=== PATIENT | male | born 1980 | race Caucasian/White ===

== ENCOUNTER 2017-03-20 17:46 | Emergency (ER) | payer BC ==
[~2017-03-20] VITALS: Ht 177.8 cm; Wt 73.9 kg
[~2017-03-20 17:46] MED LIST: RANI150T8 PO
[2017-03-20 17:47] VITALS: BP 128/83
== END 2017-03-20 20:10 | disposition home or self-care (01) ==
LOC: ED 20:04
DX: K40.90 Unilateral inguinal hernia, without obstruction or gangrene, not specified as recurrent (principal); K21.9 Gastro-esophageal reflux disease without esophagitis
CPT/HCPCS: 76870; 81003; 99285

== ENCOUNTER 2017-03-22 16:05 | Emergency (ER) | payer BC ==
[~2017-03-22] VITALS: Ht 177.8 cm; Wt 76.7 kg
[2017-03-22] MEDS ORDERED: ASPIRIN 81 MG TABLET CHEW PO ONE (16:30)
[2017-03-22] MEDS ORDERED: ASPIRIN 81 MG TABLET CHEW ONE (16:39)
[2017-03-22 16:49] VITALS: BP 130/78
[2017-03-22 16:50] LABS: BLOOD UREA NITROGEN 11 mg/dL (7-18)
[2017-03-22 16:55] LABS: IS PT STATUS REG ER OR PRE ER? YES
[2017-03-22] MEDS ORDERED: LIDOCAINE 1%-EPI 1:100K, 20ML SQ ONE (17:00)
== END 2017-03-22 18:20 | disposition home or self-care (01) ==
LOC: ED 17:02
DX: L02.415 Cutaneous abscess of right lower limb (principal); R07.89 Other chest pain; K21.9 Gastro-esophageal reflux disease without esophagitis; F15.10 Other stimulant abuse, uncomplicated
CPT/HCPCS: 10060; 36415; 71010; 80048; 82040; 84484; 85025; 93005; 99285

== ENCOUNTER 2017-04-06 12:04 | Emergency (ER) | payer BC ==
[~2017-04-06] VITALS: Ht 177.8 cm; Wt 73.6 kg
[2017-04-06 13:14] VITALS: BP 140/94
== END 2017-04-06 13:18 | disposition home or self-care (01) ==
LOC: ED 12:27
DX: S61.432A Puncture wound without foreign body of left hand, initial encounter (principal); F15.10 Other stimulant abuse, uncomplicated; W26.0XXA Contact with knife, initial encounter; Y93.89 Activity, other specified; Y92.009 Unspecified place in unspecified non-institutional (private) residence as the place of occurrence of the external cause; Y99.8 Other external cause status
CPT/HCPCS: 29125; 99283

== ENCOUNTER 2017-04-25 05:56 | Emergency (ER) | payer SELFPAY ==
[~2017-04-25] VITALS: Ht 177.8 cm; Wt 73.0 kg
[2017-04-25 06:01] VITALS: BP 120/80
[2017-04-25] MEDS ORDERED: ACETAMINOPHEN 500 MG TABLET PO ONE (06:30)
[2017-04-25] MEDS ORDERED: IBUPROFEN 200 MG TABLET PO ONE (06:30)
[2017-04-25] MEDS ORDERED: ACETAMINOPHEN 325 MG TABLET PO ONE (06:30)
[2017-04-25] MEDS ORDERED: ACETAMINOPHEN 500 MG TABLET ONE (06:36)
== END 2017-04-25 06:46 | disposition left against medical advice (07) ==
LOC: ED 06:00
DX: I88.9 Nonspecific lymphadenitis, unspecified (principal); L02.31 Cutaneous abscess of buttock
CPT/HCPCS: 99283

== ENCOUNTER 2017-04-27 22:53 | Emergency (ER) | payer SELFPAY ==
[~2017-04-27] VITALS: Ht 177.8 cm; Wt 72.1 kg
[2017-04-27 22:54] VITALS: BP 124/73
[2017-04-28] MEDS ORDERED: LIDOCAINE 1%, 20ML SQ ONE
[2017-04-28] MEDS ORDERED: LIDOCAINE 1%, 20ML ONE (00:14)
== END 2017-04-28 00:43 | disposition home or self-care (01) ==
LOC: ED 23:59 → UNDOADMIN 04-28 00:13 → EDIP 04-28 00:13 → ED 04-28 00:43
DX: L02.31 Cutaneous abscess of buttock (principal)
CPT/HCPCS: 10060

== ENCOUNTER 2017-04-29 14:53 | Emergency (ER) | payer SELFPAY ==
[~2017-04-29] VITALS: Ht 177.8 cm; Wt 72.1 kg
[2017-04-29 14:55] VITALS: BP 137/91
[2017-04-29] MEDS ORDERED: LIDOCAINE 1%, 20ML ONE (15:22)
[2017-04-29] MEDS ORDERED: LIDOCAINE 1%, 20ML SQ ONE (16:00)
== END 2017-04-29 15:45 | disposition home or self-care (01) ==
LOC: ED 15:03
DX: L03.317 Cellulitis of buttock (principal); F15.10 Other stimulant abuse, uncomplicated
CPT/HCPCS: 99283; J3490

== ENCOUNTER 2017-06-20 08:21 | Emergency (ER) | payer SELFPAY ==
[~2017-06-20] VITALS: Ht 177.8 cm; Wt 74.6 kg
[2017-06-20 08:30] VITALS: BP 146/90
== END 2017-06-20 09:54 | disposition home or self-care (01) ==
LOC: ED 09:40
DX: H01.004 Unspecified blepharitis left upper eyelid (principal); F17.200 Nicotine dependence, unspecified, uncomplicated; K21.9 Gastro-esophageal reflux disease without esophagitis
CPT/HCPCS: 99283

== ENCOUNTER 2017-06-29 03:56 | Emergency (ER) | payer SELFPAY ==
[~2017-06-29] VITALS: Ht 172.7 cm; Wt 75.8 kg
[2017-06-29 05:30] VITALS: BP 132/78
[2017-06-29] MEDS ORDERED: LIDOCAINE 1%, 20ML SQ ONE (05:30)
== END 2017-06-29 06:00 | disposition home or self-care (01) ==
LOC: ED 05:18
DX: L02.411 Cutaneous abscess of right axilla (principal); K21.9 Gastro-esophageal reflux disease without esophagitis
CPT/HCPCS: 10060

== ENCOUNTER 2017-08-07 02:26 | Emergency (ER) | payer MEDICAID ==
[~2017-08-07] VITALS: Ht 172.7 cm; Wt 80.4 kg
[2017-08-07 02:27] VITALS: BP 130/82
[2017-08-07] MEDS ORDERED: SILVER SULF. CRM 1% , 25GM ONE (02:41)
[2017-08-07] MEDS ORDERED: SILVER SULF. CRM 1% , 25GM TP ONE (03:00)
== END 2017-08-07 03:40 | disposition home or self-care (01) ==
LOC: ED 02:55
DX: T22.20XA Burn of second degree of shoulder and upper limb, except wrist and hand, unspecified site, initial encounter (principal); K21.9 Gastro-esophageal reflux disease without esophagitis; X08.8XXA Exposure to other specified smoke, fire and flames, initial encounter; Y93.89 Activity, other specified; Y92.009 Unspecified place in unspecified non-institutional (private) residence as the place of occurrence of the external cause; Y99.9 Unspecified external cause status
CPT/HCPCS: 16020; 99284

== ENCOUNTER 2017-08-28 13:11 | Emergency (ER) | payer MEDICAID ==
[~2017-08-28] VITALS: Ht 177.8 cm; Wt 79.5 kg
[2017-08-28 13:14] VITALS: BP 129/78
[2017-08-28] MEDS ORDERED: ONDANSETRON ODT 8 MG PO ONE (13:30)
[2017-08-28] MEDS ORDERED: ONDANSETRON ODT 4 MG ONE (13:35)
== END 2017-08-28 13:46 | disposition home or self-care (01) ==
LOC: ED 13:40
DX: R19.7 Diarrhea, unspecified (principal); R11.2 Nausea with vomiting, unspecified; K21.9 Gastro-esophageal reflux disease without esophagitis; F17.210 Nicotine dependence, cigarettes, uncomplicated; F19.10 Other psychoactive substance abuse, uncomplicated
CPT/HCPCS: 99283; Q0162

== ENCOUNTER 2017-09-10 13:38 | Emergency (ER) | payer MEDICAID ==
[~2017-09-10] VITALS: Ht 177.8 cm; Wt 77.7 kg
[2017-09-10 15:24] VITALS: BP 145/70
[2017-09-10] MEDS ORDERED: OXYC5CAP2 PO (15:25)
== END 2017-09-10 15:38 | disposition left against medical advice (07) ==
LOC: ED 15:22
DX: B34.9 Viral infection, unspecified (principal); K21.9 Gastro-esophageal reflux disease without esophagitis; Z59.0 Homelessness
CPT/HCPCS: 93005; 99283

== ENCOUNTER 2017-09-12 01:17 | Emergency (ER) | payer MEDICAID ==
[~2017-09-12] VITALS: Ht 177.8 cm; Wt 78.6 kg
[~2017-09-12 01:17] MED LIST changes: +OXYC5CAP2 PO
[2017-09-12 01:20] VITALS: BP 131/81
== END 2017-09-12 02:41 | disposition home or self-care (01) ==
LOC: ED 01:59
DX: J20.9 Acute bronchitis, unspecified (principal); R04.2 Hemoptysis; K21.9 Gastro-esophageal reflux disease without esophagitis; F17.200 Nicotine dependence, unspecified, uncomplicated; Z59.0 Homelessness
CPT/HCPCS: 71010; 93005; 99284

== ENCOUNTER 2017-09-30 06:57 | Emergency (ER) | payer MEDICAID ==
[2017-09-30 07:29] VITALS: BP 133/74
[2017-09-30] MEDS ORDERED: RANI150T8 PO (07:31)
== END 2017-09-30 08:09 | disposition home or self-care (01) ==
LOC: ED 07:55
DX: J20.8 Acute bronchitis due to other specified organisms (principal); B96.89 Other specified bacterial agents as the cause of diseases classified elsewhere; H66.001 Acute suppurative otitis media without spontaneous rupture of ear drum, right ear; H10.023 Other mucopurulent conjunctivitis, bilateral; K21.9 Gastro-esophageal reflux disease without esophagitis; Z88.8 Allergy status to other drugs, medicaments and biological substances
CPT/HCPCS: 99283

== ENCOUNTER 2017-10-30 15:54 | Emergency (ER) | payer MEDICAID ==
[~2017-10-30] VITALS: Ht 177.8 cm; Wt 77.0 kg
[2017-10-30 16:01] VITALS: BP 147/78
== END 2017-10-30 18:17 | disposition home or self-care (01) ==
LOC: ED 18:11
DX: K40.91 Unilateral inguinal hernia, without obstruction or gangrene, recurrent (principal)
CPT/HCPCS: 99281

== ENCOUNTER 2018-03-11 16:26 | Emergency (ER) | payer MEDICAID ==
[~2018-03-11] VITALS: Ht 177.8 cm; Wt 82.0 kg
[~2018-03-11 16:26] MED LIST changes: +RANI150T23 PO; -RANI150T8 PO
[2018-03-11 16:48] LABS: MEAN CORPUSCULAR HEMOGLOBIN 32.1 pg (27.5-34.5); MEAN CORPUSCULAR HGB CONC 34.5 g/dL (33.2-36.2); MEAN CORPUSCULAR VOLUME 92.9 fL (81-97); MEAN PLATELET VOLUME 6.7 fL (7.4-10.4); PLATELET COUNT 337 x10^3/uL (130-400); RED BLOOD COUNT 4.53 x10^6/uL (4.38-5.82)
[2018-03-11] MEDS ORDERED: DIPHENHYDRAMINE 50 MG/ML, 1ML ONE (16:58)
[2018-03-11] MEDS ORDERED: SODIUM CHLORIDE 0.9% 1,000ML IVBOLUS ONE (17:00)
[2018-03-11] MEDS ORDERED: DIPHENHYDRAMINE 50 MG/ML, 1ML IVPush ONE (17:00)
[2018-03-11 17:01] LABS: ALANINE AMINOTRANSFERASE 140 U/L (12-78); ALBUMIN 4.2 g/dL (3.4-5.0); ANION GAP 13 mmol/L (5-15); CALCIUM 8.3 mg/dL (8.5-10.1); CHLORIDE 106 mmol/L (98-107); CREATININE 1.18 mg/dL (0.7-1.3)
[2018-03-11 17:03] LABS: ALKALINE PHOSPHATASE 83 U/L (45-117); BILIRUBIN,TOTAL 2.3 mg/dL (0.2-1.0); TOTAL PROTEIN 7.7 g/dL (6.4-8.2)
[2018-03-11 17:05] LABS: ACETAMINOPHEN < 2 mcg/mL (10-30); SALICYLATE LEVEL < 1.7 mg/dL (2.8-20.0)
[2018-03-11 17:31] LABS: MD YES
[2018-03-11 17:36] LABS: BASOS#(MANUAL) 0.17 x10^3/uL (0-0.1); BASOS% (MANUAL) 1 % (0-1); LYMPH#(MANUAL) 2.25 x10^3/uL (1-3.4); LYMPHS% (MANUAL) 13 % (22-44); MONOS#(MANUAL) 1.73 x10^3/uL (0.3-2.7); MONOS% (MANUAL) 10 % (2-9); SEG#(MANUAL) 13.15 x10^3/uL (1.8-6.8); SEGS% (MANUAL) 76 % (42-75)
[2018-03-11 17:37] LABS: <PLATELET ESTIMATE> ADEQUATE; <PLT MORPHOLOGY> NORMAL PLT MORPH; <RBC MORPHOLOGY> NORMAL
[2018-03-11 18:10] LABS: AMPHETAMINE SCREEN, URINE Positive (Negative); BARBITURATE SCREEN, URINE Negative (Negative); BENZODIAZEPINE SCREEN, URINE Negative (Negative); CANNABINOID SCREEN, URINE Negative (Negative); COCAINE SCREEN, URINE Negative (Negative); METHADONE SCREEN, URINE Negative (Negative); OPIATE SCREEN, URINE Negative (Negative)
[2018-03-11 22:21] VITALS: BP 119/74
== END 2018-03-11 22:47 | disposition home or self-care (01) ==
LOC: ED 16:42
DX: R45.851 Suicidal ideations (principal); F32.9 Major depressive disorder, single episode, unspecified; F15.10 Other stimulant abuse, uncomplicated; K21.9 Gastro-esophageal reflux disease without esophagitis; Z79.899 Other long term (current) drug therapy
CPT/HCPCS: 36415; 80053; 80307; 80329; 85025; 93005; 96374; 99285; J1200; J7030; G0480

== ENCOUNTER 2018-10-12 00:46 | Emergency (ER) | payer MEDICAID ==
[~2018-10-12] VITALS: Ht 177.8 cm; Wt 70.0 kg
[2018-10-12 00:50] VITALS: BP 122/73
--- NOTE | 2018-10-12 01:57 | NUR ---
PT SLEEPING IN LOBBY. PT JUST BACK TO ROOM
[2018-10-12] MEDS ORDERED: ONDANSETRON ODT 4 MG PO ONE (02:00)
[2018-10-12] MEDS ORDERED: ONDANSETRON ODT 4 MG ONE (02:11)
[2018-10-12 02:23] LABS: BASOPHILS # (AUTO) 0.07 x10^3/uL (0-0.1); BASOPHILS % (AUTO) 1 % (0-1); EOSINOPHILS # (AUTO) 0.04 x10^3/uL (0-0.4); EOSINOPHILS % (AUTO) 0 % (1-7); LYMPHOCYTES # (AUTO) 2.12 x10^3/uL (1-3.4); LYMPHOCYTES % (AUTO) 22 % (22-44); MD NO; MEAN CORPUSCULAR HEMOGLOBIN 31.8 pg (27.5-34.5); MEAN CORPUSCULAR VOLUME 93.5 fL (81-97); MEAN PLATELET VOLUME 6.5 fL (7.4-10.4); MONOCYTES # (AUTO) 0.54 x10^3/uL (0.2-0.8); MONOCYTES % (AUTO) 6 % (2-9); NEUTROPHILS # (AUTO) 6.99 x10^3/uL (1.8-6.8); NEUTROPHILS % (AUTO) 72 % (42-75); PLATELET COUNT 312 x10^3/uL (130-400); RED CELL DISTRIBUTION WIDTH 13.6 % (9.4-14.8)
[2018-10-12 02:26] LABS: ALANINE AMINOTRANSFERASE 203 U/L (12-78); ALBUMIN 3.4 g/dL (3.4-5.0); ANION GAP 6 mmol/L (5-15); CALCIUM 8.5 mg/dL (8.5-10.1); CHLORIDE 109 mmol/L (98-107); CREATININE 0.74 mg/dL (0.7-1.3)
[2018-10-12 02:29] LABS: ALKALINE PHOSPHATASE 106 U/L (45-117); BILIRUBIN,TOTAL 0.4 mg/dL (0.2-1.0); TOTAL PROTEIN 6.7 g/dL (6.4-8.2)
== END 2018-10-12 03:12 | disposition home or self-care (01) ==
LOC: ED 02:50
DX: R10.84 Generalized abdominal pain (principal); F15.122 Other stimulant abuse with intoxication with perceptual disturbance; K21.9 Gastro-esophageal reflux disease without esophagitis; F32.9 Major depressive disorder, single episode, unspecified
CPT/HCPCS: 36415; 80053; 83690; 85025; 99283

== ENCOUNTER 2018-10-19 02:26 | Emergency (ER) | payer MEDICAID ==
[~2018-10-19] VITALS: Ht 177.8 cm; Wt 67.7 kg
[2018-10-19 02:28] VITALS: BP 173/97
[2018-10-19] MEDS ORDERED: ACETAMINOPHEN 500 MG TABLET PO ONE (03:00)
[2018-10-19] MEDS ORDERED: ONDANSETRON ODT 4 MG PO ONE (03:00)
[2018-10-19] MEDS ORDERED: ACETAMINOPHEN 500 MG TABLET ONE (03:06)
[2018-10-19] MEDS ORDERED: ONDANSETRON ODT 4 MG ONE (03:06)
== END 2018-10-19 03:30 | disposition home or self-care (01) ==
LOC: ED 03:20
DX: J06.9 Acute upper respiratory infection, unspecified (principal); K21.9 Gastro-esophageal reflux disease without esophagitis; F17.200 Nicotine dependence, unspecified, uncomplicated; F32.9 Major depressive disorder, single episode, unspecified
CPT/HCPCS: 99283; Q0162